=== PATIENT | male | born 1980 | race Caucasian/White ===

== ENCOUNTER 2024-08-01 18:16 | Emergency (ER) | payer SELFPAY ==
[2024-08-01] MEDS: Bupivacaine 0.5% 10 ML SDV INJECT ONE (20:50)
== END 2024-08-01 20:51 | disposition home or self-care (01) ==
LOC: JD.ED 18:16
DX: S61.101A Unspecified open wound of right thumb with damage to nail, initial encounter (principal); Z88.0 Allergy status to penicillin; W23.1XXA Caught, crushed, jammed, or pinched between stationary objects, initial encounter; Y93.89 Activity, other specified
CPT/HCPCS: 64450; 73140; 99283; J0665